=== PATIENT | female | born 1940 | race Caucasian/White ===

== ENCOUNTER → 2025-07-16 | Outpatient (CLI) | payer MEDICARE ==
[~2025-07-16] MED LIST: AEC81 PO; CALCIUM PO; CHOL200013 PO; LACT10SO85 PO; LACTULOSE; MECL-302 PO; MULTIVITAMIN PO; OMEGA3 PO; OMEP20CA12 PO; ROSU10TA22 GT; TRAM50TA4 PO
--- NOTE | 2025-07-16 12:02 | HMCIMG ---
CHEST 2VWS REASON: PRE OP COMPARISON: None FINDINGS: Two views of the chest were obtained. Lungs are clear. There is hyperaeration of lungs with flattening of both hemidiaphragms suggesting of chronic obstructive disease.. Heart size is normal. There is no pulmonary vascular congestion. Mediastinum and bony thorax appear unremarkable. Osteopenia of the bony thorax. There are surgical clips in the right upper quadrant from prior cholecystectomy. IMPRESSION: Chronic obstructive pulmonary disease
== END | disposition home or self-care (01) ==
LOC: RAH 09:29
PROVIDERS: ATTEND Family Medicine
DX: Z01.818 Encounter for other preprocedural examination (principal); R05.9 Cough, unspecified; J44.9 Chronic obstructive pulmonary disease, unspecified; Z90.49 Acquired absence of other specified parts of digestive tract
CPT/HCPCS: 71046